=== PATIENT | female | born 1990 | race Caucasian/White ===

== ENCOUNTER 2022-03-12 13:41 | Outpatient (CLI) | payer BC, SELFPAY ==
[2022-03-12 16:28] LABS: HIV 1/2/P24 Combo Screen* Negative (Negative)
[2022-03-12 16:36] LABS: Hepatitis C Virus Antibody* Negative (Negative)
[2022-03-12 16:38] LABS: Hepatitis B Surface Antigen* Negative (Negative)
[2022-03-12 17:06] LABS: Chlamydia DNA Amplified* NOT DETECTED (No Detected); GC DNA Amplified* NOT DETECTED (No Detected)
[2022-03-14 18:04] LABS: Rapid Plasma Reagin (RPR) Non Reactive (Non Reactive)
== END 2022-03-12 13:42 | disposition home or self-care (01) ==
PROVIDERS: PCP Family Medicine; Visit Provider Physician Assistant
DX: Z11.3 Encounter for screening for infections with a predominantly sexual mode of transmission (principal)
CPT/HCPCS: 86592; 86703; 86803; 87340; 87491; 87591

== ENCOUNTER 2023-03-22 16:06 | Outpatient (CLI) | payer MEDICAID, SELFPAY ==
[2023-03-22 19:07] LABS: Chlamydia DNA Amplified* Not Detected (No Detected); GC DNA Amplified* Not Detected (No Detected)
== END 2023-03-22 16:07 | disposition home or self-care (01) ==
PROVIDERS: PCP Family Medicine; Visit Provider Registered Nurse
DX: Z11.3 Encounter for screening for infections with a predominantly sexual mode of transmission (principal)
CPT/HCPCS: 86592; 86703; 86803; 87340; 87491; 87591

== ENCOUNTER 2023-10-16 07:32 | Outpatient (CLI) | payer MEDICAID, SELFPAY ==
--- NOTE | 2023-10-16 07:45 | MM_ITS ---
Patient: JIM MACDONALD Facility:?[facility] Patient ID:?[id number] Site Patient ID:?[id number] Site :?1990 Study:?XRay-Breast Left 3D W/CAD-10/16/2023 8:33:56 AM Ordering Physician:Lolis Sanchez Final Report: DIGITAL DIAGNOSTIC LEFT MAMMOGRAM USING TOMOSYNTHESIS AND COMPUTER-AIDED DETECTION LEFT BREAST ULTRASOUND CLINICAL HISTORY: LEFT breast lump. COMPARISON: None. TECHNIQUE: Digital LEFT mammogram in two projections. Tomosynthesis and CAD utilized. Real-time ultrasound imaging of LEFT breast with imaging documentation. BREAST COMPOSITION: The breast is extremely dense, which lowers the sensitivity of mammography. FINDINGS: 3D CC/MLO LEFT breast mammogram images submitted. No suspicious mass or architectural distortion. No suspicious calcifications or adenopathy. Targeted LEFT breast ultrasound performed 3 o`clock 6 cm from the nipple. No suspicious mass. Normal dense fibroglandular tissue and fat tissue. No fibrocystic change. IMPRESSION: No suspicious findings. No evidence of malignancy. RECOMMENDATIONS: Clinical follow-up. Age-appropriate screening mammography. Results and recommendations discussed with the patient. BI-RADS Category 2: Benign A lay language report of this examination will be provided to the patient. Dictated by Carlin Perez MD @ 10/16/2023 9:17:05 AM jj/Dictated by: Carlin Perez MD @ 10/16/2023 9:17:00 AM Signed by:?Carlin Perez MD @10/16/2023 11:07:52 AM (Electronic Signature)
--- NOTE | 2023-10-16 08:15 | US_ITS ---
Patient: JIM MACDONALD Facility:?[facility] Patient ID:?[id number] Site Patient ID:?[id number] Site :?1990 Study:?US-Breast Left DR MOORE TO READ-10/16/2023 8:37:36 AM Ordering Physician:?ANU WRIGHT Final Report: PLEASE SEE LEFT BREAST DIAGNOSTIC MAMMOGRAM OF SAME DAY. CRL:sp SP/Dictated by: Carlin Moore MD @ 10/16/2023 9:17:00 AM Signed by:?Carlin Moore MD @10/16/2023 9:33:33 PM (Electronic Signature)
== END 2023-10-16 07:33 | disposition home or self-care (01) ==
PROVIDERS: PCP Family Medicine; Visit Provider Obstetrics & Gynecology
DX: N63.20 Unspecified lump in the left breast, unspecified quadrant (principal)
CPT/HCPCS: 76642; 77065; G0279